=== PATIENT | male | born 1990 | race Caucasian/White ===

== ENCOUNTER 2020-12-28 07:33 | Outpatient (CLI) | payer BC | END 2020-12-28 07:34 | disposition home or self-care (01) | LOC: SCSMRI 07:33 | PROVIDERS: ATTEND Family Medicine | DX: M54.5 Low back pain (principal); R93.7 Abnormal findings on diagnostic imaging of other parts of musculoskeletal system; R10.2 Pelvic and perineal pain | CPT/HCPCS: 72195 ==